=== PATIENT | female | born 1950 | race Caucasian/White ===

== ENCOUNTER 2018-09-06 12:55 | Outpatient (CLI) | payer MEDICARE, OTHER ==
--- NOTE | 2018-10-16 11:52 | ULT ---
LOWER [id number] ARTERIAL EVALUATION USING DOPPLER WAVEFORM ANALYSIS AND SEGMENTAL LIMB PRESSURES: FINDINGS: Examination of the right leg reveals normal Doppler waveforms at all levels with an ankle-arm index o f 1.12 and a normal toe-brachial index of 1.12 and a normal toe-branchial index. Examination of the left leg reveals a normal waveform or mildly depressed waveform at the femoral level with a more norm al waveform at the posterior tibial level. Ankle-arm index is normal at 1.2 and toe-brachial index w as slightly diminished under 0.6. This study demonstrates overall well-performed lower extremities and would be inconsistent with a fabiana gnosis of ischemic wrist pain. POS: [facility]
== END 2018-09-06 12:56 | disposition home or self-care (01) ==
LOC: ULT 12:55
PROVIDERS: ATTEND Family Medicine
DX: M79.604 Pain in right leg (principal); M79.605 Pain in left leg
CPT/HCPCS: 93922

== ENCOUNTER 2021-07-22 13:53 | Outpatient (CLI) | payer MEDICARE ==
[2021-07-22 15:05] LABS: Hemoglobin 13.5 g/dL (12.0-15.5); Mean Corpuscular Volume 90.1 fl (81.6-98.3); Platelet Count 143 10x3/uL (150-450); RBC Distribution Width 14.7 % (11.5-14.5); Red Blood Cell (RBC) Count 4.83 10x6/uL (3.90-5.03); White Blood Cell (WBC) Count 6.8 10x3/uL (3.5-10.5)
[2021-07-22 15:12] LABS: INR-International Normal Ratio 1.8; PTT 30.6 sec (22.0-33.0); Prothrombin Time 19.8 sec (9.5-12.1)
[2021-07-22 15:17] LABS: Anion Gap 12 mmol/L (10-20); BUN (Urea Nitrogen) 15 mg/dL (9.8-20.1); Calc. Creatinine Clearance 0 mL/min (70-130); Calcium 9.3 mg/dL (7.8-10.44); Carbon Dioxide 26 mmol/L (23-31); Chloride 108 mmol/L (98-107); Glucose 102 mg/dL (80-115); Potassium 4.3 mmol/L (3.5-5.1); Sodium 142 mmol/L (136-145)
[2021-07-22 23:19] LABS: SARS-CoV-2 PCR by NAA Not Detected (NotDetected)
== END 2021-07-22 13:54 | disposition home or self-care (01) ==
LOC: LABBT 13:53
PROVIDERS: ATTEND Urology
DX: Z01.812 Encounter for preprocedural laboratory examination (principal); N20.0 Calculus of kidney; R31.29 Other microscopic hematuria; I26.99 Other pulmonary embolism without acute cor pulmonale; I48.91 Unspecified atrial fibrillation; N13.30 Unspecified hydronephrosis; Z79.01 Long term (current) use of anticoagulants; Z20.822 Contact with and (suspected) exposure to COVID-19
CPT/HCPCS: 80048; 85027; 85610; 85730; U0003; U0005

== ENCOUNTER 2021-09-09 12:58 | Outpatient (CLI) | payer MEDICARE ==
[2021-09-09 14:33] LABS: Hemoglobin 12.5 g/dL (12.0-15.5); Mean Corpuscular HGB CONC 31.3 g/dL (32.0-36.0); Mean Corpuscular Hemoglobin 28.5 pg (27.0-33.0); Mean Corpuscular Volume 90.9 fl (81.6-98.3); Mean Platelet Volume 11.6 fl (7.4-10.4); Platelet Count 111 10x3/uL (150-450); RBC Distribution Width 15.9 % (11.5-14.5); Red Blood Cell (RBC) Count 4.39 10x6/uL (3.90-5.03); White Blood Cell (WBC) Count 6.8 10x3/uL (3.5-10.5)
[2021-09-09 14:39] LABS: Anion Gap 13 mmol/L (10-20); BUN (Urea Nitrogen) 10 mg/dL (9.8-20.1); Calc. Creatinine Clearance 0 mL/min (70-130); Calcium 9.1 mg/dL (7.8-10.44); Carbon Dioxide 25 mmol/L (23-31); Chloride 108 mmol/L (98-107); Glucose 78 mg/dL (80-115); Potassium 3.9 mmol/L (3.5-5.1); Sodium 142 mmol/L (136-145)
[2021-09-09 14:40] LABS: INR-International Normal Ratio 3.6; PTT 39.5 sec (22.0-33.0); Prothrombin Time 37.2 sec (9.5-12.1)
[2021-09-10 16:09] LABS: SARS-CoV-2 PCR by NAA Not Detected (NotDetected)
== END 2021-09-09 12:59 | disposition home or self-care (01) ==
LOC: LABBT 12:58
PROVIDERS: ATTEND Urology
DX: Z01.818 Encounter for other preprocedural examination (principal); I26.99 Other pulmonary embolism without acute cor pulmonale; I48.91 Unspecified atrial fibrillation; K80.21 Calculus of gallbladder without cholecystitis with obstruction; N83.201 Unspecified ovarian cyst, right side; K44.9 Diaphragmatic hernia without obstruction or gangrene; N13.2 Hydronephrosis with renal and ureteral calculous obstruction; Z79.01 Long term (current) use of anticoagulants; R31.29 Other microscopic hematuria; Z20.822 Contact with and (suspected) exposure to COVID-19
CPT/HCPCS: 80048; 85027; 85610; 85730; 93005; U0003; U0005; 93010

== ENCOUNTER 2021-09-21 08:11 | Outpatient (CLI) | payer MEDICARE | END 2021-09-21 08:12 | disposition home or self-care (01) | LOC: BICRAD 08:11 | PROVIDERS: ATTEND Urology | DX: N20.0 Calculus of kidney (principal) | CPT/HCPCS: 74018 ==

== ENCOUNTER 2022-05-12 07:30 | Outpatient (CLI) | payer MEDICARE ==
[2022-05-12] MEDS ORDERED: Iopamidol 370 76% 50 ML VIAL FS ONE (10:18)
[2022-05-12] MEDS ORDERED: Iopamidol 370 76% 100 ML VIAL ONE (10:18)
== END 2022-05-12 07:31 | disposition home or self-care (01) ==
LOC: NM 07:30
PROVIDERS: ATTEND Otolaryngology Plastic Surgery within the Head & Neck
DX: E21.3 Hyperparathyroidism, unspecified (principal); J90 Pleural effusion, not elsewhere classified; K44.9 Diaphragmatic hernia without obstruction or gangrene; I25.10 Atherosclerotic heart disease of native coronary artery without angina pectoris; E04.2 Nontoxic multinodular goiter; E07.89 Other specified disorders of thyroid; I70.0 Atherosclerosis of aorta; I65.23 Occlusion and stenosis of bilateral carotid arteries; M47.812 Spondylosis without myelopathy or radiculopathy, cervical region
CPT/HCPCS: 70492; 78072; 82565; A9500